=== PATIENT | female | born 1985 | race Caucasian/White ===

== ENCOUNTER 2017-11-25 18:12 | Emergency (ER) | payer OTHER ==
[~2017-11-25] VITALS: Ht 172.7 cm; Wt 111.1 kg
[~2017-11-25 18:12] MED LIST: BENZ200C51 PO; BIRTH CONTROL PO; CIPR-225 PO; DCS100C PO; DIAZ2TAB PO; DULO60CA6 PO; FAMO20TA5 PO; GLUC1CAP37 PO; GUAI100G2 PO; GUAI600T43 PO; HYDR-229 PO; HYDR-34 PO; IBP800T PO; IBUP-2055 PO; LORA0.5T PO; METR500T PO; MULT1TAB69 PO; ONDN4T PO; OXYC-12 PO; OXYC-473 PO; OXYC1TAB12 PO; PANT40TA2 PO; SERT50TA2 PO; SERT50TA9 PC
[2017-11-25] MEDS ORDERED: fentaNYL INJECTION 100 MCG/2 ML AMP ONE (19:02)
[2017-11-25] MEDS ORDERED: NS IV 1000 ML 1,000 ML ONE (19:02)
[2017-11-25] MEDS ORDERED: fentaNYL INJECTION 100 MCG/2 ML AMP IVP STA ×2 (19:03→20:08)
[2017-11-25 19:10] LABS: BASOPHILS % (AUTO) 0 % (0-10); EOSINOPHILS # (AUTO) 0.2 10^3/uL (0.0-0.3); EOSINOPHILS % (AUTO) 2 % (0-10); HEMATOCRIT 38 % (35-52); HEMOGLOBIN 13.5 G/DL (11.5-16.0); LYMPHOCYTES # (AUTO) 2.2 X 10^3 (1.0-4.0); LYMPHOCYTES % (AUTO) 27 % (12-44); MEAN CORPUSCULAR HEMOGLOBIN 31 PG (25-34); MEAN CORPUSCULAR HGB CONC 36 G/DL (32-36); MEAN CORPUSCULAR VOLUME 87 FL (80-99); MEAN PLATELET VOLUME 8.6 FL (7.4-10.4); MONOCYTES # (AUTO) 0.7 X 10^3 (0.0-1.0); MONOCYTES % (AUTO) 8 % (0-12); NEUTROPHILS # (AUTO) 5.1 X 10^3 (1.8-7.8); NEUTROPHILS % (AUTO) 63 % (42-75); PLATELET COUNT 332 10^3/uL (130-400); RED BLOOD COUNT 4.32 10^6/uL (4.35-5.85); RED CELL DISTRIBUTION WIDTH 12.6 % (10.0-14.5); WHITE BLOOD COUNT 8.2 10^3/uL (4.3-11.0)
[2017-11-25 19:26] LABS: ALANINE AMINOTRANSFERASE 25 U/L (0-55); ALBUMIN 4.5 GM/DL (3.2-4.5); ALKALINE PHOSPHATASE 67 U/L (40-136); BUN/CREATININE RATIO 12; CALCIUM 10.2 MG/DL (8.5-10.1); CARBON DIOXIDE 19 MMOL/L (21-32); CHLORIDE 108 MMOL/L (98-107); CREATININE SERUM 0.82 MG/DL (0.60-1.30); GFR ESTIMATED > 60; GLUCOSE 110 MG/DL (70-105); POTASSIUM 3.4 MMOL/L (3.6-5.0); SODIUM 139 MMOL/L (135-145); TOTAL PROTEIN 7.9 GM/DL (6.4-8.2)
[2017-11-25] MEDS ORDERED: NS IV 1000 ML 1,000 ML IV ONE (19:41)
--- NOTE | 2017-11-25 20:09 | ED GU-Female ---
General Chief Complaint: -Female Stated Complaint: MISCARRIAGE Nursing Triage Note: pt reports she is in the process of having a miscarriage. she has been followed by dr simon. reports severe pain et heavy bleeding starting today. reports she is feeling dizzy. Nursing Sepsis Screen: No Definite Risk Source: patient Exam Limitations: no limitations History of Present Illness Date Seen by Provider: Nov 25, 2017 Time Seen by Provider: 19:48 Initial Comments Here with report of miscarriage. She has followed with Dr. Simon this week and knows that she is miscarrying. She is right at 10 weeks gestation currently. States that she's had fairly significant bleeding and cramping like contractions the last couple of hours that were fairly significant when she got here but have lessened after arrival. Timing/Duration: this afternoon Severity/Quality: moderate, severe, aching, cramping Location: suprapubic Radiation: back Activities at Onset: none Sexual [place] History: less than 2 months ago, single partner Modifying Factors: Improves With Resting Associated Symptoms: abdominal pain, No dysuria, No fever/chills, lower back pain, No nausea/vomiting, No urinary frequency Allergies and Home Medications Allergies Coded Allergies: cefaclor (Unverified Allergy, Mild, HIVES, 10/28/10) MOTHER AND BROTHER ARE BOTH ALLERGIC SO SHE ASSUMES SHE IS cefazolin (Unverified Allergy, Unknown, 10/29/10) tramadol (Unverified Adverse Reaction, Mild, hives on leg, 04/29/11) zolpidem tartrate (Unverified Adverse Reaction, Mild, hives on leg, 04/29/11 ) Home Medications Diazepam 2 Mg Tablet, 2 MG PO PRN PRN for HEADACHE, (Reported) Ibuprofen 200 Mg Tablet, 800 MG PO DAILY PRN for PAIN, (Reported) Multivitamin 1 Each Tablet, 1 TAB PO HS, (Reported) Ondansetron HCl 4 Mg Tab, 4 MG PO Q4H Prescribed by: JESSICA PAN on 07/29/16 1150 Oxycodone HCl 5 Mg Tablet, 5 MG PO Q4H Prescribed by: JESSICA PAN on 07/29/16 1150 Pantoprazole Sodium 40 Mg Tablet.dr, 40 MG PO DAILY Prescribed by: JESSICA PAN on 07/29/16 1150 Sertraline HCl 50 Mg Tablet, 50 MG PC HS, (Reported) Patient Home Medication List Home Medication List Reviewed: Yes Constitutional: see HPI, No chills, No fever EENTM: no symptoms reported Respiratory: no symptoms reported Cardiovascular: no symptoms reported Gastrointestinal: see HPI, abdominal pain, No nausea, No vomiting Genitourinary: see HPI, pain : Yes Musculoskeletal: no symptoms reported All Other Systemes Reviewed Negative Unless Noted: Yes Past Emqmzxx-Ffmnkc-Rgaszz Hx Patient Social History Alcohol Use: Occasionally Uses Alcohol Beverage of Choice: Beer Recreational Drug Use: No Smoking Status: Current Someday Smoker Former Smoker, Quit: May 21, 2014 Recent Foreign Travel: No Contact w/Someone Who Travel: No Recent Infectious Disease Expo: No Recent Hopitalizations: Yes (january 2016) Immunizations Up To Date Tetanus Booster (TDap): Less than 5yrs PED Vaccines UTD: No Date of Influenza Vaccine: Jun 13, 2016 Seasonal Allergies Seasonal Allergies: Yes Surgeries History of Surgeries: Yes Surgeries: Section, Orthopedic Respiratory History of Respiratory Disorde: No Cardiovascular History of Cardiac Disorders: No Neurological History of Neurological Disord: Yes Neurological Disorders: Headaches /Migraines Reproductive System : Yes Last Menstrual Period: Sep 18, 2017 Hx : 3 Hx Para: 1 Hx Reproductive Disorders: No Sexually Transmitted Disease: Yes (HPV 2002) HIV/AIDS: No Female Reproductive Disorders: Denies Genitourinary History of Genitourinary Disor: Yes Genitourinary Disorders: Bladder Infection Gastrointestinal History of Gastrointestinal Di: Yes Gastrointestinal Disorders: Colitis Musculoskeletal History of Musculoskeletal Dis: Yes Musculoskeletal Disorders: Arthritis, Fractures HEENT History of HEENT Disorders: No Loss of Vision: Denies Hearing Impairment: Denies Psychosocial History of Psychiatric Problem: Yes Behavioral Health Disorders: Anxiety, Depression Blood Transfusions Adverse Reaction to a Blood Tr: No (N/A) Reviewed Nursing Assessment Reviewed/Agree w Nursing PMH: Yes Family Medical History Significant Family History: Heart Disease, Diabetes Family Medial History: Cardiovascular disease 19 MOTHER Diabetes mellitus 19 MOTHER FH: breast cancer GRANDMOTHER, PATERNAL FH: cancer 19 FATHER FH: hyperlipidemia 19 MOTHER Hypertension 19 MOTHER Physical Exam Vital Signs Vital Signs - First Documented 11/25/17 18:31 Temp 97.8 Capillary Refill : Less Than 3 Seconds General Appearance: WD/WN, no apparent distress HEENT: PERRL/EOMI, pharynx normal Neck: full range of motion, supple Cardiovascular: regular rate, rhythm, no murmur Respiratory: lungs clear, normal breath sounds Gastrointestinal: non tender, soft Back: normal inspection, no CVA tenderness, no vertebral tenderness Extremities: non-tender, normal inspection Neurologic/Psychiatric: alert, oriented x 3 Skin: normal color, warm/dry Progress/Results/Core Measures Suspected Sepsis Recent Fever Within 48 Hours: No Infection Criteria Present: None New/Unexplained Altered Menta: No Sepsis Screen: No Definite Risk Sepsis Diagnosis: SIRS Temperature:97.8 Pulse: Respiratory Rate: Laboratory Tests 11/25/17 18:50: White Blood Count 8.2 Blood Pressure / Mean: Laboratory Tests 11/25/17 18:50: Creatinine 0.82, Platelet Count 332, Total Bilirubin 1.0 Results/Orders Lab Results Laboratory Tests Test 11/25/17 18:50 Range/Units White Blood Count 8.2 4.3-11.0 10^3/uL Red Blood Count 4.32 L 4.35-5.85 10^6/uL Hemoglobin 13.5 11.5-16.0 G/DL Hematocrit 38 35-52 % Mean Corpuscular Volume 87 80-99 FL Mean Corpuscular Hemoglobin 31 25-34 PG Mean Corpuscular Hemoglobin Concent 36 32-36 G/DL Red Cell Distribution Width 12.6 10.0-14.5 % Platelet Count 332 130-400 10^3/uL Mean Platelet Volume 8.6 7.4-10.4 FL Neutrophils (%) (Auto) 63 42-75 % Lymphocytes (%) (Auto) 27 12-44 % Monocytes (%) (Auto) 8 0-12 % Eosinophils (%) (Auto) 2 0-10 % Basophils (%) (Auto) 0 0-10 % Neutrophils # (Auto) 5.1 1.8-7.8 X 10^3 Lymphocytes # (Auto) 2.2 1.0-4.0 X 10^3 Monocytes # (Auto) 0.7 0.0-1.0 X 10^3 Eosinophils # (Auto) 0.2 0.0-0.3 10^3/uL Basophils # (Auto) 0.0 0.0-0.1 10^3/uL Sodium Level 139 135-145 MMOL/L Potassium Level 3.4 L 3.6-5.0 MMOL/L Chloride Level 108 H 98-107 MMOL/L Carbon Dioxide Level 19 L 21-32 MMOL/L Anion Gap 12 5-14 MMOL/L Blood Urea Nitrogen 10 7-18 MG/DL Creatinine 0.82 0.60-1.30 MG/DL Estimat Glomerular Filtration Rate > 60 BUN/Creatinine Ratio 12 Glucose Level 110 H 70-105 MG/DL Calcium Level 10.2 H 8.5-10.1 MG/DL Total Bilirubin 1.0 0.1-1.0 MG/DL Aspartate Amino Transf (AST/SGOT) 17 5-34 U/L Alanine Aminotransferase (ALT/SGPT) 25 0-55 U/L Alkaline Phosphatase 67 40-136 U/L Total Protein 7.9 6.4-8.2 GM/DL Albumin 4.5 3.2-4.5 GM/DL My Orders Orders - CHRIS DE JESUS MD Cbc With Automated Diff (11/25/17 19:03) Saline Lock/Iv-Start (11/25/17 19:03) Comprehensive Metabolic Panel (11/25/17 19:03) Fentanyl Injection (Sublimaze Injection (11/25/17 19:03) Fentanyl Injection (Sublimaze Injection (11/25/17 19:02) Ns Iv 1000 Ml (Sodium Chloride 0.9%) (11/25/17 19:02) Saline Lock/Iv-Start (11/25/17 19:41) Ns Iv 1000 Ml (Sodium Chloride 0.9%) (11/25/17 19:41) Ekg Tracing (11/25/17 20:06) Fentanyl Injection (Sublimaze Injection (11/25/17 20:08) Us Ob Transvaginal 13082 (11/25/17 19:03) Rx-Hydrocodone/Apap 5-325 Mg (Rx-Vicodin (11/25/17 22:45) Medications Given in ED Current Medications Medications Dose Ordered Sig/Yong Route Start Time Stop Time Status Last Admin Dose Admin Sodium Chloride 1,000 ml @ 0 mls/hr Q0M ONCE IV 11/25/17 19:41 11/25/17 19:42 DC 11/25/17 19:10 1,000 MLS/HR Vital Signs/I&O Vital Sign - Last 12Hours 11/25/17 18:31 Temp 97.8 B/P (MAP) Capillary Refill : Less Than 3 Seconds Progress Note : Progress Note Seen and evaluated. IV, labs and ultrasound ordered. Will saline 1 L bolus. Fentanyl 50 g IV and this was repeated 1. Ultrasound shows incomplete miscarriage with contents at the cervix per preliminary read. Monitor patient. 221: Ultrasound complete and results reviewed. Patient's hemoglobin is normal and a normal white count. Patient did have passage of tissue and clots after return from ultrasound and actually has had much less significant bleeding since then and over the last hour. States pain is also improved but still has some intermittent cramping. We did discuss different options including possible D&C if needed. Patient would like to go home and monitor for worsening and we'll reconsider as needed. I discussed the case with Dr. Duncan, on-call for Dr. Simon at 2231 and he agrees. Discharged home with return precautions. Patient verbalize understanding instructions and agreement with plan. Diagnostic Imaging Diagonstic Imaging: Ultrasound Plain Films/CT/US/NM/MRI: pelvis Comments NAME: HELEN GOMEZN Jeanette [facility] REC#: [id number] PT STATUS: REG ER : 1985 PHYSICIAN: CHRIS DE JESUS MD ADMIT DATE: 11/25/17/ER Signed Date of Exam: 11/25/17 US OB TRANSVAGINAL 55400 Clinical indication: Patient with vaginal bleeding. Comparison: CT scan of the abdomen and pelvis with contrast dated 01/25/2016. Procedure: Transabdominal and endovaginal real-time imaging is performed. Findings: LMP is 09/18/2017. GA (by LMP): 9 weeks, 5 days CORINNE (by LMP): 06/25/2018. GA (by AUA): 6 weeks, 0 days. CORINNE (by AUA): 07/21/2018. There is a gestational sac, amniotic sac, and pole seen. The amniotic sac measures roughly 5.5 mm. The mean crown-rump length is 0.34 cm, compatible with 6 weeks, 0 days gestation. There is no heart rate seen at this time. There is an average amount of amniotic fluid present. The right and left adnexa region show no gross abnormality, but the ovaries are not definitively visualized. Impression: There is a gestational sac, amniotic sac, and pole seen with crown-rump length suggesting 6 weeks, 0 days gestation. There is no heart rate seen. This may represent early gestational age, but failed can't be completely excluded. Followup pelvic OB ultrasound is suggested to evaluate for interval growth and heart tones to better evaluate. Trending of hCG is also suggested. Dictated by: Dictated on workstation # [id number] Dict: 11/25/172040 Trans: 11/25/172229 Interpreted by: ALLEY TORRES MD Electronically signed by: ALLEY TORRES MD 11/25/172229 Departure Impression Impression: Primary Impression: Incomplete miscarriage Disposition: HOME, SELF-CARE Condition: Stable Departure-Patient Inst. Decision time for Depature: 22:38 Referrals: NANNETTE CADENA MD (PCP/Family) Primary Care Physician Patient Instructions: Miscarriage (DC) Add. Discharge Instructions: All discharge instructions reviewed with patient and/or family. Voiced understanding. Follow-up with Dr. huang on Monday for recheck and further evaluation. Call his office first thing in the morning on Monday. Return for worse pain, fever, bleeding greater than 2 large pads per hour for more than 2 hours, weakness, breathing problems or other concerns as needed. Take medications as directed. You may take ibuprofen 800 mg every 8 hours as needed for pain as well. Copy Copies To 1: GARRICK SIMON TIMOTHY D MD Nov 25, 2017 20:09
--- NOTE | 2017-11-25 20:55 | Diagnostic Imaging Report ---
Clinical indication: Patient with vaginal bleeding. Comparison: CT scan of the abdomen and pelvis with contrast dated 01/25/2016. Procedure: Transabdominal and endovaginal real-time imaging is performed. Findings: LMP is 09/18/2017. GA (by LMP): 9 weeks, 5 days CORINNE (by LMP): 06/25/2018. GA (by AUA): 6 weeks, 0 days. CORINNE (by AUA): 07/21/2018. There is a gestational sac, amniotic sac, and pole seen. The amniotic sac measures roughly 5.5 mm. The mean crown-rump length is 0.34 cm, compatible with 6 weeks, 0 days gestation. There is no heart rate seen at this time. There is an average amount of amniotic fluid present. The right and left adnexa region show no gross abnormality, but the ovaries are not definitively visualized. Impression: There is a gestational sac, amniotic sac, and pole seen with crown-rump length suggesting 6 weeks, 0 days gestation. There is no heart rate seen. This may represent early gestational age, but failed can't be completely excluded. Followup pelvic OB ultrasound is suggested to evaluate for interval growth and heart tones to better evaluate. Trending of hCG is also suggested. Dictated by: Dictated on workstation # [id number]
[2017-11-25] MEDS ORDERED: RX-HYDROCODONE/APAP 5/325 MG #4 TAB PK PO ONE (22:34)
[2017-11-25] MEDS ORDERED: RX-HYDROCODONE/APAP 5/325 MG #4 TAB PK PO PRN (22:45)
[2017-11-25 22:54] VITALS: BP 124/85
== END 2017-11-25 22:54 | disposition home or self-care (01) ==
LOC: EDUNIT# 18:12 → ER 18:14
DX: O03.4 Incomplete spontaneous abortion without complication (principal); O99.341 Other mental disorders complicating pregnancy, first trimester; F32.9 Major depressive disorder, single episode, unspecified; F41.9 Anxiety disorder, unspecified; O99.351 Diseases of the nervous system complicating pregnancy, first trimester; G43.909 Migraine, unspecified, not intractable, without status migrainosus; Z87.891 Personal history of nicotine dependence; Z98.51 Tubal ligation status; Z87.81 Personal history of (healed) traumatic fracture; Z87.19 Personal history of other diseases of the digestive system; Z86.19 Personal history of other infectious and parasitic diseases; Z88.5 Allergy status to narcotic agent; Z88.1 Allergy status to other antibiotic agents; Z88.8 Allergy status to other drugs, medicaments and biological substances; Z3A.10 10 weeks gestation of pregnancy
CPT/HCPCS: 36415; 76817; 80053; 85025

== ENCOUNTER → 2019-01-25 | Outpatient (CLI) | payer OTHER ==
--- NOTE | 2019-01-25 15:04 | Diagnostic Imaging Report ---
PROCEDURE: CT sinuses without contrast TECHNIQUE: Multiple contiguous axial images were obtained through the sinuses without the use of intravenous contrast. Coronal and sagittal reformations were then performed. Auto Exposure Controls were utilized during the CT exam to meet ALARA standards for radiation dose reduction. INDICATION: Sinus infections. COMPARISON: There are no prior studies available for comparison. FINDINGS: There is mild mucosal thickening of the maxillary and sphenoid sinuses and at least moderate mucosal thickening of the ethmoid sinuses. The frontal sinuses are generally clear. The ostiomeatal complexes are occluded by mucosal thickening. The nasal septum is deviated to the left, and there is a small bony projection in the mid portion of the septum directed to the left. The osseous structures are intact. The orbits are symmetrical and within normal limits. The intracranial contents, where visualized, are unremarkable for an acute abnormality. IMPRESSION: There is at least moderate ethmoid sinusitis and mild bilateral maxillary and sphenoid sinusitis. Dictated by: Dictated on workstation # [id number]
== END ==
LOC: RAD 07:30
PROVIDERS: ATTEND Otolaryngology Otolaryngology/Facial Plastic Surgery
DX: J32.2 Chronic ethmoidal sinusitis (principal); J32.0 Chronic maxillary sinusitis; J32.3 Chronic sphenoidal sinusitis
CPT/HCPCS: 70486

== ENCOUNTER → 2020-09-14 | Outpatient (CLI) | payer OTHER ==
[~2020-09-14] MED LIST changes: -IBUP-2055 PO; +IBUP-2473 PO; +MULT-567 PO; -MULT1TAB69 PO
--- NOTE | 2020-09-14 09:54 | Diagnostic Imaging Report ---
PROCEDURE: MRI lumbar spine without contrast. TECHNIQUE: Multiplanar, multisequence MRI of the lumbar spine was performed without contrast. INDICATION: Low back pain with right leg radiculopathy. No known injury. COMPARISON: 09/20/2016. FINDINGS: 5 lumbar type vertebral bodies are visualized with the last well-formed disc space designated L5-S1. No acute fracture or dislocation is seen in the lumbar spine. Alignment is anatomic. Vertebral body heights are well-maintained. The bone marrow signal is normal. The conus terminates at the L1 level. No masses are seen associated with the conus or nerve roots of the cauda equina. No epidural collections are identified. Multilevel degenerative changes are seen in the lumbar spine with disc bulges, facet hypertrophy, and buckling of the ligamentum flavum. T12-L1: No significant spinal canal or foraminal stenosis. L1-L2: Central disc bulge and facet hypertrophy results in no significant spinal canal or foraminal stenosis. L2-L3: Disc desiccation with broad-based disc bulge, facet hypertrophy, and buckling of ligamentum flavum results in mild spinal canal narrowing and no significant foraminal narrowing. L3-L4: Broad-based disc bulge, facet hypertrophy, and buckling of ligamentum flavum results in mild spinal canal narrowing and mild bilateral foraminal narrowing. L4-L5: Broad-based disc bulge with superimposed left subarticular protrusion, facet hypertrophy, and buckling of the ligamentum flavum results in mild to moderate spinal canal narrowing, moderate to severe left lateral recess stenosis, and moderate bilateral foraminal stenosis. L5-S1: Broad-based disc bulge, facet hypertrophy, and buckling of the ligamentum flavum results in mild spinal canal narrowing and mild right and [id number] left foraminal narrowing. Paravertebral soft tissues are unremarkable. IMPRESSION: 1. No acute fracture or dislocation in the lumbar spine. 2. Multilevel degenerative changes in the lumbar spine, greatest at L4-L5 with a left subarticular protrusion resulting in moderate to severe left lateral recess stenosis. Dictated by: Dictated on workstation # [id number]
== END ==
LOC: RAD 08:45
PROVIDERS: ATTEND Family Medicine
DX: M47.26 Other spondylosis with radiculopathy, lumbar region (principal); M51.16 Intervertebral disc disorders with radiculopathy, lumbar region; M48.061 Spinal stenosis, lumbar region without neurogenic claudication
CPT/HCPCS: 72148

== ENCOUNTER 2020-10-28 08:00 | Outpatient (RCR) | payer OTHER | END 2020-11-01 | disposition home or self-care (01) | DX: M54.16 Radiculopathy, lumbar region (principal) ==

== ENCOUNTER 2020-12-31 14:01 | Outpatient (RCR) | payer OTHER ==
[~2020-12-31 14:01] MED LIST changes: +SERT-413 PC; -SERT50TA9 PC
== END 2021-03-31 | disposition home or self-care (01) ==
DX: M54.16 Radiculopathy, lumbar region (principal); M19.90 Unspecified osteoarthritis, unspecified site; F32.9 Major depressive disorder, single episode, unspecified; F41.9 Anxiety disorder, unspecified

== ENCOUNTER 2021-07-05 08:17 | Outpatient (RCR) | payer OTHER | END 2021-09-14 | disposition home or self-care (01) | DX: M54.16 Radiculopathy, lumbar region (principal) ==

== ENCOUNTER → 2022-03-16 | Outpatient (CLI) | payer OTHER | LOC: ORTHO 09:28 | PROVIDERS: ATTEND Orthopaedic Surgery | DX: M19.072 Primary osteoarthritis, left ankle and foot (principal); S82.842A Displaced bimalleolar fracture of left lower leg, initial encounter for closed fracture; E66.9 Obesity, unspecified; X58.XXXA Exposure to other specified factors, initial encounter | CPT/HCPCS: 20600; G0463 ==

== ENCOUNTER → 2022-12-20 | Outpatient (CLI) | payer OTHER | LOC: ORTHO 14:47 | PROVIDERS: ATTEND Orthopaedic Surgery | DX: M19.172 Post-traumatic osteoarthritis, left ankle and foot (principal); E66.9 Obesity, unspecified | CPT/HCPCS: 20610 ==

== ENCOUNTER 2023-03-06 09:25 | Outpatient (RCR) | payer OTHER | END 2023-03-24 | disposition home or self-care (01) | PROVIDERS: ATTEND Physical Therapist | DX: M54.16 Radiculopathy, lumbar region (principal) ==

== ENCOUNTER → 2023-03-14 | Outpatient (CLI) | payer OTHER ==
--- NOTE | 2023-03-14 14:56 | Diagnostic Imaging Report ---
PROCEDURE: Pelvic comp/transvaginal sonogram. TECHNIQUE: Complete transabdominal and transvaginal pelvic ultrasound was performed. In addition, limited pelvic Doppler was performed. INDICATION: Pelvic pressure and bloating. The uterus is retroverted measuring 7.1 x 3.8 x 4.4 cm. Endometrium is 9 mm in thickness. There is an area of myometrial heterogeneity near the fundus measuring approximately 2.3 cm in size, likely a fibroid. No other myometrial masses are identified. Cervical nabothian cysts are noted. Right ovary was not visualized due to overlying bowel gas and the patient's body habitus. Left ovary measures 4.5 x 1.7 x 2.1 cm. There is blood flow to the left ovary. No adnexal mass or free fluid is detected. IMPRESSION: 1. Probable uterine fibroid. 2. Nonvisualized right ovary due to overlying bowel gas and patient body habitus. The study is otherwise unremarkable. Dictated by: Dictated on workstation # [id number]
== END ==
LOC: RAD 13:16
PROVIDERS: ATTEND Family Medicine
DX: R14.0 Abdominal distension (gaseous) (principal); R10.2 Pelvic and perineal pain
CPT/HCPCS: 76830; 76856

== ENCOUNTER 2023-04-26 08:49 | Outpatient (RCR) | payer OTHER | END 2023-05-25 | disposition home or self-care (01) | PROVIDERS: ATTEND Physical Therapist | DX: M54.16 Radiculopathy, lumbar region (principal) ==